=== PATIENT | female | born 1995 ===

== ENCOUNTER → 2023-10-06 09:24 | Outpatient (BNV) | payer OTHER, SELFPAY | PROVIDERS: Visit Provider Psychiatry & Neurology Psychiatry | DX: F33.2 Major depressive disorder, recurrent severe without psychotic features (principal); F41.1 Generalized anxiety disorder | CPT/HCPCS: 99212; 99214 ==

== ENCOUNTER 2023-10-12 08:45 | Outpatient (RCR) | payer OTHER, SELFPAY ==
[2023-10-06 13:03] VITALS: BMI 21.8
[2023-10-06 13:04] VITALS: BP 100/59; PULSE 71; TEMP 37.2
--- NOTE | 2023-10-06 13:34 | PC.ADMIT ---
Patient is a 28 year old female who was referred to [facility] by her therapist d/t patient reports severe anxiety and depression sxs. She has left 3 jobs and graduate program within the past 12 months which is not usual for her. She does not have a history of inpatient LOC. She currently lives alone, She is thinking about moving back with mom. Mom is very supportive. Laurie is alert and oriented x4. Calm and cooperative. She presents with depressed mood anxious affect. She denied SI. I gave Erika a copy of her safety plan if needed. Medications reconciled with patient and patient's pharmacy. She reports she is taking medications as prescribed.
--- NOTE | 2023-10-06 16:29 | HO.PHP ---
The client's case was reviewed and opened in treatment team.
--- NOTE | 2023-10-06 22:08 | HO.PS.ADMBH ---
HPI Date of Service: 10/06/23 Chief Complaint: OCD,ADHD Sources of Information: patient interviewed, chart reviewed and crisis/core team assessment reviewed HPI Narrative: Patient is a single 28 year old female who was referred by her therapist for depression and anxiety. She dropped out of graduate school last Fall and has had a series of unsuccessful attempts at maintaining employment over the past year - most of these citing specific details about the work environment she found intolerable. She reports working so hard to get where she is academically, and is devastated that she is still not in graduate school. She reports that she was last doing well 2 years ago, since that time she has been dealing with a lot of anxiety and feeling depressed, with low mood, low motivation, poor concentration, profound anhedonia, hypersomnia, appetite intact. 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 She reports experiencing both cognitive and somatic anxiety on a daily basis. Upon inquiry about SI, she explains having poor tolerance of even the smallest stressors which can put her in a head space of feeling backed into a corner and gets this free fall feeling, which sounds sometimes like detachment, other times like a heightened desperation - experiencing an impending doom feeling that a panic attack is about to ensue or she may act out impulsively in some way. She denies any clear thoughts of harming herself or others, denies any intention, urge or plan. She reports experiencing existential angst pertaining to productivity and need to control, persistent concerns especially about the passage of time and feeling time slipping by and questioning what the future holds, ambitions and what she will be able to accomplish. She reflects on being an adoptee (she was raised by two mothers who adopted her when she was an ) and understandably these experiences inform how she sees herself, her relationships with others, and contributes to some cognitive dissonance around identity and culture. She reports a history of trauma related to one of her mothers who was an alcoholic when she was growing up. She had a difficult relationship with this parent and has made all attempts to avoid them for years now. As a result, she reports being highly sensitive and easily triggered by other people's behaviors particularly when they are under the influence of alcohol or marijuana. Reportedly her other parent will be coming for Thanksgiving at her mother's house in [place]. She has considered not going on and just visiting with her mother alone after the holiday. She reports a long history of depression that comes and goes but overall did well (academically, socially, functionally) as an undergraduate student at [employer] where she graduated in 2018. 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 She has been applying for research/lab positions, but has already quit 2 jobs (at [employer] and then [employer]) due to long commute and unsatisfactory work conditions, respectively. She is currently employed at [employer] for the past 6 weeks, but gave a long list of complaints pertaining to procedural problems and lab equipment. She recently was accepted into the graduate biotech program at [employer], but is pessimistic about her prospects due to financial constraints not feeling this is a feasible option. She has had numerous antidepressant trials in the past, but most were short-lived due to poor tolerance and says she is generally prone to experiencing adverse affects from medications even at low doses (she never got past starting doses on any medications. She was most recently prescribed Effexor but stopped taking this a week ago due to vision changes. She reports poor tolerance to SSRIs and her presciber suggested trying an SNRI. She is currently prescribed Ritalin long and short acting for ADHD symptoms as well as prn Ativan for anxiety, which she takes sparingly due to addiction/tolerance concerns. Failed trials include: Wellbutrin - jittery, anger/agitation Trintellex - sudden acute blurriness Zoloft - epistaxis requiring ambulance/ED Lexapro - periods of non-responsiveness Prozac - vision changes Viibryd - on for a couple of months, caused gradual dimming of peripheral holm Effexor - Lamictal - strong headaches, visual disturbance propranolol She reportedly underwent genetic testing with a [place] doctor who told her never to go on Abilify or could lose control of facial muscles , was told that people don't metabolize medication well and generally require lower doses. Past Psychiatric History: Previous [facility] admissions x 2 to [place] (virtually) and [facility] First time at [facility] No IP hospitalizations Denies hx of suicide attempts, gestures or SIB Denies aggression Current Medications: methylphenidate LA 20 mg qd methylphenidate 10 mg qd Ativan 0.5 mg PRN anxiety on OCP for acne (previously on spironolactone) [facility] Medical History (Updated 10/07/23 @ 19:53 by Emily Scott MD) No known health problems Narrative: No hx of seizures or concussions Nulligravid G0 LMP: 1 week ago Ht: 5'5 Wt: 130 lbs ALLERGIES: Trintillex Narrative: [place] teeth removal Family History: Patient was adopted, does not know FH Social History: Lives alone in apartment in [place]. She is currently employed at [employer] since 07/2023 She was adopted in infancy and raised by two mothers. The mom she is close to is back home in [place]. She is estranged from her other parent who had a history of alcoholism. When she was in 5th grade, this parent was arrested for DUI with patient in the car Graduated [employer] in 2018. Was in Masters program Applied Molecular Biology at [employer] in Fall 2022 but dropped out after 3 weeks Substance History: Denies abuse history. Limited alcohol use in the past. Denies any substance use hx. No nicotine use. Trauma History: Relational trauma Diagnostics Vital Signs (24Hr): Vital Signs - 24 hr 10/06/23 13:04 Temperature 98.9 F Pulse Rate 71 Blood Pressure 100/59 L BMI result Body Mass Index 21.8 Meds/Allergies Meds Home Medications Medication Instructions Recorded Confirmed Type drospirenone 3 mg-ethinyl 1 tab PO DAILY 10/06/23 10/06/23 History estradiol 0.03 mg tablet (Shayna) lorazepam 0.5 mg tablet 0.5 mg PO DAILY PRN Anxiety 10/06/23 10/06/23 History methylphenidate HCl 10 mg tablet 10 mg PO BID 10/06/23 10/06/23 History methylphenidate HCl 20 mg biphasic 20 mg PO QAM 10/06/23 10/06/23 History 50-50 capsule,extended release Allergies Allergies Allergy/AdvReac Type Severity Reaction Status Date / Time Penicillins [PCN] Allergy Unknown Verified 10/06/23 13:02 Beef Containing Products AdvReac Diarrhea Verified 10/06/23 13:02 oreo Allergy Mouth Uncoded 10/06/23 13:02 numbness Telehealth Telehealth Location of provider rendering services: other (private office) Location of patient: other ([facility]) Patient Identification confirmed using: Name, : Yes Telehealth method: video Patient verbally consented to treatment: Yes Minutes spent on Phone/Video with Pt.: 60 Assessment & Plan Assessment & Plan (1) Generalized anxiety disorder: Status: Acute Code(s): F41.1 - Generalized anxiety disorder Assessment and Plan: +/- OCPD traits (2) Depressive disorder: Status: Acute Code(s): F32.A - Depression, unspecified Plan Admit to PHP continue regular medications Her provider has reportedly started her on an older antidepressant, (presumably desipramine since she thinks it may be a TCA starting with a D - but she was not sure if that was the one - says it's def not doxepin) follow-up as per protocol no refills needed at this time Patient educated on: diagnosis and medication risk/benefits Informed Consent: understands Reason for continued partial hosp. stay Substantial Risk for: inability to function, rapid decompensation and med/psych decompensation Certification I certify that partial hospital treatment is medically necessary due to the symptoms and problems resulting from the patient's mental illness and the failure to treat the patient at the partial hospital level of care would likely result in the patient requiring inpatient psychiatric care which could not be prevented at a less intensive level of care. Time Spent With Patient Time: Total time managing care of this patient today __60__ minutes.
== END 2023-10-12 23:59 | disposition home or self-care (01) ==
LOC: HO.PHPA 08:45
PROVIDERS: Visit Provider Psychiatry & Neurology Psychiatry
DX: F41.1 Generalized anxiety disorder (principal); F32.A Depression, unspecified; Z79.899 Other long term (current) drug therapy
CPT/HCPCS: 90791; 90853